=== PATIENT | male | born 1940 | race Caucasian/White ===

== ENCOUNTER → 2022-12-26 | Outpatient (CLI) | payer MEDICARE ==
--- NOTE | 2022-12-26 10:21 | MR ---
EXAMINATION TYPE: MR Prostate wo/w con DATE OF EXAM: 12/26/2022 9:21 AM COMPARISON: None. CLINICAL INDICATION:Male, 82 years old with history of R97.20; TECHNIQUE: Multi-planar, multi-sequence imaging of the pelvis is performed prior to and following the uncomplicated administration of bolus intravenous gadolinium. CONTRAST: 8 Gad[facility]ist Interpretive Criteria: PI-RADS v2.1 SERUM PSA: 7.7 on 09/04/2022 SURGICAL PATHOLOGY: No data available. FINDINGS: Prostatic dimensions: 8.1 x 8.8 x 6.4 cm. Ellipsoid Volume:238.86 (PSA density=0.03 ng/mL/mL) CENTRAL GLAND (Central and Transition Zones/CZ+TZ): Multiple bilateral, heterogenous appearing hypertrophic stromal nodules, without suspicious lesion. S rebecca focus of restricted diffusion within the left central gland hypertrophic stromal nodule measuri ng 5 mm Median lobe hypertrophy with protrusion into the base of the bladder. (PI-RADS 2) PERIPHERAL ZONE (PZ): Atrophic and thinned secondary to central gland hypertrophy changes. No evidence of masslike abnormal ity, or localized perfusional hypervascularity, to further suggest a focus of clinically significant prostate cancer. (PI-RADS 2) SEMINAL VESICLES (SV): Symmetric and unremarkable. PERIPROSTATIC TISSUES: Unremarkable. LYMPH NODES: No enlarged pelvic lymph node. REMAINING PELVIS: Bladder wall is within normal limits given distention. No abnormal free or organized intrapelvic fluid collection. No pathologic bowel dilation or mural thickening. Right fat-containing inguinal hernia. Left fat small bowel containing hernia. OSSEOUS STRUCTURES: No suspicious osseous abnormality. IMPRESSION: 1. No specific features for high-risk prostate cancer. Maximum PI-RADS score: 2. 2. Marked BPH, estimated gland volume 238 mL. 3. Left inguinal hernia containing what is thought to be a loop of small bowel. No evidence for bowel obstruction.
== END | disposition home or self-care (01) ==
LOC: RADMRIMAIN 08:12
PROVIDERS: ATTEND Physician Assistant
DX: N40.0 Benign prostatic hyperplasia without lower urinary tract symptoms (principal); K40.90 Unilateral inguinal hernia, without obstruction or gangrene, not specified as recurrent; R97.20 Elevated prostate specific antigen [PSA]
CPT/HCPCS: 72197; A9585

== ENCOUNTER → 2023-07-23 | Outpatient (CLI) | payer MEDICARE ==
--- NOTE | 2023-07-23 16:00 | NM ---
EXAMINATION TYPE: NM bone scan whole body DATE OF EXAM: 07/23/2023 COMPARISON: NONE CLINICAL INDICATION: Male, 82 years old with history of R97.2 ELEVATED PSA; TECHNIQUE: Delayed whole-body scanning was performed following the injection of 23.8 mCi Tc 99m MDP. Images acquired 5 hours post injection. FINDINGS: Scattered degenerative tracer activity includes both shoulders, sternoclavicular joints, posterior el ements of the lower thoracic and upper lumbar spine. Also right hip and both knees. No suspicious dis tribution of tracer is clearly identified. Possible photopenic defect along the dome of the bladder. IMPRESSION: 1. Scattered degenerative tracer activity as outlined above. No convincing scintigraphic evidence for osseous metastatic disease. 2. Note a focal photopenic defect along the dome of the bladder. Recommend bladder ultrasound to excl ude the possibility of an underlying bladder wall mass.
== END | disposition home or self-care (01) ==
LOC: RADNMMAIN 06:46
PROVIDERS: ATTEND Family Medicine
DX: N32.89 Other specified disorders of bladder (principal); R97.20 Elevated prostate specific antigen [PSA]; R63.4 Abnormal weight loss
CPT/HCPCS: 78306; A9503

== ENCOUNTER → 2024-12-15 | Outpatient (CLI) | payer MEDICARE ==
[2024-12-15 15:09] LABS: Basophils # (A) 0.02 X 10*3/uL (0.00-0.10); Basophils % (A) 0.3 %; Eosinophils # (A) 0.58 X 10*3/uL (0.04-0.35); Eosinophils % (A) 7.4 %; HCT 43.9 % (39.6-50.0); HGB 14.3 g/dL (13.0-17.0); Lymphocytes # (A) 1.23 X 10*3/uL (0.90-5.00); Lymphocytes % (A) 15.7 %; MCH 29.1 pg (27.0-32.0); MCHC 32.6 g/dL (32.0-37.0); MCV 89.2 FL (80.0-97.0); Monocytes # (A) 0.55 X 10*3/uL (0.20-1.00); NRBC Per 100 WBC 0 X 10*3/uL (0.00-0.01); Neutrophils # (A) 5.43 X 10*3/uL (1.80-7.70); Neutrophils % (A) 69.3 %; Platelet Count 250 X 10*3/uL (140-440); RBC 4.92 X 10*6/uL (4.40-5.60); RDW 13.1 % (11.5-14.5); WBC 7.83 X 10*3/uL (4.50-10.00)
[2024-12-15 19:43] LABS: Blood Urea Nitrogen 10.7 mg/dL (9.0-27.0); Calcium 9.7 mg/dL (8.7-10.3); Carbon Dioxide 23.2 mmol/L (21.6-31.8); Chloride 101 mmol/L (96-109); Glucose 131 mg/dL (70-110); Potassium 4.3 mmol/L (3.5-5.5); Sodium 138 mmol/L (135-145)
[2024-12-15 21:20] LABS: Appearance,Urine Cloudy (Clear); Bilirubin,Urine Negative (Negative); Blood,Urine Large (Negative); Color,Urine Yellow (Yellow); Ketones,Urine Trace (Negative); Nitrite,Urine Positive (Negative); PH, Urine 5.5; Urobilinogen,Urine 0.2 E.U./DL
[2024-12-15 21:53] LABS: Bacteria,Urine 3+ (None Seen)
== END | disposition home or self-care (01) ==
LOC: LABWHC1 10:06
PROVIDERS: ATTEND Urology
DX: N40.1 Benign prostatic hyperplasia with lower urinary tract symptoms (principal); R33.8 Other retention of urine; N13.8 Other obstructive and reflux uropathy
CPT/HCPCS: 36415; 80048; 81001; 85025; 87086